=== PATIENT | female | born 1955 | race Caucasian/White ===

== ENCOUNTER → 2016-04-24 | Outpatient (CLI) | payer OTHER ==
--- NOTE | 2016-04-24 18:07 | MA ---
Screening Digital Mammogram With Tomosynthesis and iCAD Indication: Routine screening. Technique: Standard digital CC projections were obtained. Digital breast tomosynthesis was performed in the MLO projection with reconstruction at 1.0 mm slice thickness. Composite MLO views were recons tructed. This examination was processed by the iCAD computer-aided detection system. Comparison: April 2015, March 2014, March 2013, and January 2011 Breast density: Type B. Findings: CAD was reviewed. No suspicious microcalcifications, mass, or architectural distortion. Impression: Negative mammogram BI-RADS: 1 - Negative Recommendation: Routine screening is recommended in one year. [facility] will send a result letter to the patient. Negative mammography should not preclude additional workup of a clinically suspicious finding. The patient's information is entered into a reminder system with a target due date for her next mammo gram.
== END ==
LOC: FIMAGING 16:15
DX: Z12.31 Encounter for screening mammogram for malignant neoplasm of breast (principal)
CPT/HCPCS: G0202

== ENCOUNTER → 2016-06-01 | Outpatient (CLI) | payer OTHER | LOC: FIMAGING 13:38 | PROVIDERS: ATTEND Internal Medicine | DX: Z13.820 Encounter for screening for osteoporosis (principal); M81.0 Age-related osteoporosis without current pathological fracture; Z82.62 Family history of osteoporosis; Z78.0 Asymptomatic menopausal state; Z79.890 Hormone replacement therapy ==

== ENCOUNTER 2016-11-07 05:53 | Inpatient (IN) | payer OTHER ==
[2016-11-07] MEDS ORDERED: POVIDONE-IODINE 20 ML in SODIUM CL IRRIG SOLUTION 500 ML IRR ONE (06:00)
[2016-11-07] MEDS ORDERED: TRANEXAMIC ACID 850 MG in NS 100 ML IV ONE (06:00)
[2016-11-07] MEDS ORDERED: ROPIVACAINE 0.2% 80 MG, EPINEPHrine 0.2 MG, KETOROLAC TROMETHAMINE 30 MG in BAG 0 ML IU ONE (06:00)
[2016-11-07] MEDS ORDERED: ACETAMINOPHEN 325 MG TAB PO ONE (06:10)
[2016-11-07] MEDS ORDERED: FAMOTIDINE 20 MG TAB PO ONE (06:10)
[2016-11-07] MEDS ORDERED: DEXAMETHASONE 4 MG/ML VIAL IVP ONE (06:10)
[2016-11-07] MEDS ORDERED: ceFAZolin 2 GM/DEXTROSE 100 ML IV ONE (06:10)
[2016-11-07] MEDS ORDERED: DEXAMETHASONE 4 MG/ML VIAL ONE ×3 (06:23→07:04)
[2016-11-07] MEDS ORDERED: CALCIUM CHLORIDE 1 GM/10 ML INJ ONE (06:41)
[2016-11-07] MEDS ORDERED: VANCOMYCIN 1 GM VIAL ONE ×2 (06:41→06:42)
[2016-11-07] MEDS ORDERED: THROMBIN (BOVINE) 5,000 UNIT VIAL TP ONE (06:41)
[2016-11-07] MEDS ORDERED: LR 1,000 ML IV ONE (06:42)
[2016-11-07] MEDS ORDERED: ceFAZolin 1 GM/5 ML SYR ONE (06:42)
--- NOTE | 2016-11-07 06:56 | PDANEPAE ---
ANE Past Medical History - Cardiovascular History Hx Hypertension: No Hx Arrhythmias: No Hx Chest Pain: No Hx Coronary Artery / Peripheral Vascular Disease: No Hx CHF / Valvular Disease: No Hx Palpitations: No - Pulmonary History Hx COPD: No Hx Asthma/Reactive Airway Disease: No Hx Recent Upper Respiratory Infection: No Hx Oxygen in Use at Home: No Hx Sleep Apnea: No Sleep Apnea Screening Result - Last Documented: Negative - Neurologic History Hx Cerebrovascular Accident: No Hx Seizures: No Hx Dementia: No - Endocrine History Hx Diabetes: No - Renal History Hx Renal Disorders: No - Liver History Hx Hepatic Disorders: No - Neurological & Psychiatric Hx Hx Neurological and Psychiatric Disorders: No - Cancer History Hx Cancer: No - Congenital Disorder History Hx Congenital Disorders: No - GI History Hx Gastrointestinal Disorders: No - Chronic Pain History Chronic Pain: No - Surgical History Prior Surgeries: COLONOSCOPY W/ POLYPECTOMY 06/02/2016. Uterine ablation 1999. Tonsils & Adenoidectomy 1960 ANE Review of Systems - Exercise capacity METS (RN): 4 METS ANE Patient History - Allergies Allergies/Adverse Reactions: glutoalderhyde Allergy (Uncoded 03/05/15 16:05) - Home Medications Home Medications: Atorvastatin Calcium [Lipitor 10 mg (RX)] 10 mg PO DAILY 11/04/11 [Last Taken Unknown] Biest 50:50 Hrt 50mcg 0.25 ml TP BID 10/10/16 [Last Taken Unknown] Cholecalciferol Vit D3 [Vitamin D3 (*)] 2,500 units PO DAILY 10/10/16 [Last Taken Unknown] Clobetasol 0.05% [Temovate Topical Solution (RX)] 1 denise TP DAILY 10/10/16 [Last Taken Unknown] Herbals/Supplements -Info Only 1 ea PO DAILY 10/10/16 [Last Taken Unknown] Progesterone, Micronized [Progesterone] 100 mg PO HS 10/10/16 [Last Taken Unknown] Testosterone 1mg 0.25 ml TP DAILY 10/10/16 [Last Taken Unknown] - NPO status NPO Since - Liquids (Date): 11/06/16 NPO Since - Liquids (Time): 23:55 NPO Since - Solids (Date): 11/06/16 NPO Since - Solids (Time): 23:55 - Smoking Hx Smoking Status: Never smoked - Family Anes Hx Family Hx Anesthesia Complications: N/A ANE Labs/Vital Signs - Vital Signs Blood Pressure: 168/93 Heart Rate: 80 Respiratory Rate: 16 O2 Sat (%): 96 Height: 157.48 cm Weight: 86.183 kg ANE Physical Exam - Airway Neck exam: FROM Mouth exam: normal dental/mouth exam - Pulmonary Pulmonary: no respiratory distress, no rales or rhonchi, clear to auscultation - Cardiovascular Cardiovascular: regular rate and rhythym, no murmur, rub, or gallop - ASA Status ASA Status: II ANE Anesthesia Plan Anesthesia Plan: spinal
--- NOTE | 2016-11-07 07:00 | PDHPUP ---
History & Physical Update H&P update statement: This history and physical update is based on an assessment of the patient which was completed after admission or registration (within 24 hours), but prior to the surgery/procedure. H&P update: H&P reviewed & patient examined, no change in patient's condition since H&P completed
[2016-11-07] MEDS ORDERED: LIDOCAINE 2% 5 ML SDV ONE (07:04)
[2016-11-07] MEDS ORDERED: PROPOFOL/EMULSION 500 MG/50 ML BOTTLE IV ONE (07:04)
[2016-11-07] MEDS ORDERED: fentaNYL 100 MCG/2 ML INJ ONE (07:04)
[2016-11-07] MEDS ORDERED: BUPIVACAINE/EPI 0.25% 30 ML SDV ONE (07:31)
[2016-11-07] MEDS ORDERED: MEPERIDINE 25 MG/ML SYR IVP PRN (08:01)
[2016-11-07] MEDS ORDERED: PROMETHAZINE HCL 25 MG/ML INJ IVP PRN ×2 (08:01→08:58)
[2016-11-07] MEDS ORDERED: HYDROCODONE/APAP 5/325 TAB PO PRN (08:01)
[2016-11-07] MEDS ORDERED: ONDANSETRON 4 MG/2 ML VIAL IVP PRN ×2 (08:01→08:58)
[2016-11-07] MEDS ORDERED: OXYCODONE/APAP 5/325 TAB PO PRN (08:01)
[2016-11-07] MEDS ORDERED: LABETALOL HCL 50 MG/10 ML SYR IVP PRN (08:01)
[2016-11-07] MEDS ORDERED: NALOXONE HCL 0.4 MG/ML INJ IVP PRN (08:01)
[2016-11-07] MEDS ORDERED: fentaNYL 100 MCG/2 ML INJ IVP PRN (08:01)
[2016-11-07] MEDS ORDERED: ACETAMINOPHEN 500 MG TAB PO PRN (08:01)
[2016-11-07] MEDS ORDERED: ENALAPRILAT DIHYDRATE 1.25 MG/ML VIAL IVP PRN (08:01)
[2016-11-07] MEDS ORDERED: HYDROmorphONE/DILAUDID 1 MG/ML SYR IVP PRN (08:01)
[2016-11-07] MEDS ORDERED: LR 500 ML IV PRN (08:01)
[2016-11-07] MEDS ORDERED: PROPOFOL 200 MG/20 ML VIAL ONE (08:07)
--- NOTE | 2016-11-07 08:42 | POSTOPPROG ---
Post Op Note Date of Operation: 11/07/16 Surgeon: Cristian Groves [employer] Contractor: Hubert Chen/Jake Peters Anesthesiologist: Seth Macario Anesthesia: IV Sedation, Spinal Post-op Diagnosis: right knee severe degenerative Arthritis Procedure: right total knee arthroplasty. Inf/Abcess present in the surg proc area at time of surgery?: No EBL: 50-100 (Adductor canal block.)
[2016-11-07] MEDS ORDERED: MAGNESIUM HYDROXIDE 30 ML UDCUP PO PRN (08:58)
[2016-11-07] MEDS ORDERED: LACTULOSE 20 GM/30 ML UDCUP PO PRN (08:58)
[2016-11-07] MEDS ORDERED: TEMAZEPAM 15 MG CAP PO PRN (08:58)
[2016-11-07] MEDS ORDERED: BISACODYL 10 MG SUPP PR PRN (08:58)
[2016-11-07] MEDS ORDERED: DIPHENOXYLATE/ATROPINE LOMOTIL 1 TAB PO PRN (08:58)
[2016-11-07] MEDS ORDERED: CYCLOBENZAPRINE 10 MG TAB PO PRN (08:58)
[2016-11-07] MEDS ORDERED: ONDANSETRON DISINTEGRATING 4 MG TAB PO PRN (08:58)
[2016-11-07] MEDS ORDERED: diphenhydrAMINE 25 MG CAP PO PRN (08:58)
[2016-11-07] MEDS ORDERED: PROMETHAZINE HCL 25 MG SUPPR PR PRN (08:58)
[2016-11-07] MEDS ORDERED: oxyCODONE IR 5 MG TAB PO PRN (08:58)
[2016-11-07] MEDS ORDERED: POLYETHYLENE GLYCOL 3350 17 GM PKT PO PRN (08:58)
[2016-11-07] MEDS ORDERED: METOCLOPRAMIDE 10 MG/2 ML VIAL IVP PRN (08:58)
[2016-11-07] MEDS ORDERED: NS 500 ML IV PRN (08:58)
[2016-11-07] MEDS ORDERED: ATORVASTATIN CALCIUM 10 MG TAB PO SCH ×2 (09:00→21:45)
[2016-11-07] MEDS ORDERED: LR 1,000 ML IV SCH (09:00)
--- NOTE | 2016-11-07 09:21 | POSTANESTH ---
Post Anesthetic Evaluation Cardiovascular Status: Normal, Stable Respiratory Status: Normal, Stable, Similar to Pre-op Cond. Level of Consciousness/Mental Status: Can Participate in Eval, Alert and Oriented Pain Control: Adequate, Prn Tx Ordered Nausea/Vomiting Control: Adequate, Prn Tx Ordered Complications Possibly Related to Anesthesia: None Noted (Adductor canal block performed in PACU: 20 ml 0.25% bupiv + epi, U/S guided, no complications.)
--- NOTE | 2016-11-07 10:53 | GOP ---
[f rep st] OPERATIVE REPORT DATE OF OPERATION: 11/07/2016 SURGEON: Cristian Groves MD CHILDCARE TEACHER: Hubert Chen and Jake Peters. ANESTHESIA: A combination of Marcaine, spinal, IV sedation, and adductor canal block. ANESTHESIOLOGIST: Quan Macario M.D. PREOPERATIVE DIAGNOSIS: Right knee severe degenerative arthritis. POSTOPERATIVE DIAGNOSIS: Right knee severe degenerative arthritis. PROCEDURE PERFORMED: Right total knee arthroplasty, cemented, Schuster and Nephew Journey II, posterio r stabilized. FINDINGS: ESTIMATED BLOOD LOSS: Following deflation of the tourniquet was about 100 mL. The sponge and needle count were correct on 2 occasions. She was awakened from anesthesia, transferred to her hospital [facility] and taken to the PACU in satisf actory condition. There were no recognized intraoperative complications. In the PACU, for additional postoperative pain control, Dr. Macario performed an adductor canal block. Hubert Chen and Jake Peters acted as surgical assistants. Their assistance was a medical neces sity in order to safely complete the procedure. DESCRIPTION OF PROCEDURE: The patient was given 2 g of preoperative IV Ancef within 60 minutes of s urgery. She also received IV tranexamic acid at a dose of 10 mg/kg. She was placed on the [facility] g room table and given spinal anesthesia with Marcaine by Dr. Macario. She was then placed supine and given IV sedation. A Genao catheter was not used. She wore a CHRIS stocking and SCD on the nonopera tive leg. A bolster was placed under the right leg to prevent excessive external rotation. Her rig ht lower extremity was prepped with ChloraPrep from the upper thigh tourniquet to the tips of the to es. It was draped free using sterile sheets, stockinette, and Ioban plastic adhesive drape. The lo wer leg was wrapped with compressive Coban. The leg was exsanguinated with elevation and a 6-inch c ompressive wrap, and the pneumatic tourniquet was inflated to 300 mmHg. The [facility] on time-out was performed to verify the correct patient identity and the correct surgical side. The [place] time-out was also performed. The [facility] leg holding device was sterilely attached to the operating room table and used throughout the procedure to help position the knee. A straight midline incision was made centered on the patella. Subcutaneous tissues were sharply div ided and hemostasis was obtained using electrocautery. A medial subcutaneous flap was developed and the capsule and synovium were opened in a medial parapatellar fashion. Extensive degenerative enriquez ges were present in all 3 compartments, although the medial compartment was the most involved. The medial capsule and periosteum were elevated off the rim of the medial tibial plateau all the way octavia und to the posterior medial corner. Her medial collateral ligament was lightly released in order to balance the medial side of the knee. In order to improve exposure, her patella was prepared first. The original thickness of the patella was measured. Peripheral osteophytes were removed. I cut a flat surface on the back of the patell a. It was sized for a 32 mm resurfacing component. I removed enough bone from the patella such dawson t the remaining bone plus the thickness of the patellar component recreated the original thickness o f the patella. Her composite patellar thickness was 21 mm. The intramedullary alignment guide system was used to set up the distal femoral cut. The distal fem ur was cut in 6 degrees of valgus. I made a +2 mm cut on the distal femur. The sizing jig was used to determine proper femoral sizing. I shifted the 5 jig anteriorly 1 mm in order to accommodate a size 5 without notching the anterior cortex. The 5 in 1 cutting block was applied, and the anterior and posterior condylar cuts and chamfer cuts were made. The final jig was used to remove the centr al portion of the distal femur to accommodate the posterior stabilized femoral component. I was car eful to determine proper rotation by referencing off [place] line. Each cut was checked for accu racy before and after it was made. Her femur was sized for a size 5 posterior stabilized component. The trial component was tapped securely into place and was a good fit. Next, the tibia was prepared. The proximal tibial cut was made using the extramedullary alignment g uide system. The cut was made in a few degrees of posterior slope. I was careful to achieve proper varus and valgus alignment and proper rotation. The posterior compartment was cleared of meniscal remnants. Osteophytes were removed from the back of her femoral condyles. I checked the flexion ex tension gaps, and they were equal and balanced. The tibia was sized for a size 4 component. With the trial components in place, I selected a 12 mm polyethylene posterior stabilized tibial insert. The knee came to full extension and flexed to 125 degrees. There was no overstuffing in flexion. Her collateral ligaments were stable and balanced i n 90 degrees of flexion and full extension. The trial patellar button was applied, and patellar tra cking was checked. Tracking was excellent without any digital pressure. 40 mL of a joint anesthetic cocktail was injected into the posterior capsule, the periarticular stru ctures, the quadriceps muscle and tendon areas, and the subcutaneous tissues along the skin edges. A second dose of IV tranexamic acid was given at a dose of 10 mg/kg. The surfaces were prepared for cementing. They were carefully cleaned with the pulsating lavage irr igation and thoroughly dried. The CarboJet device was used to blow dry the cancellous surfaces. A double batch of high viscosity methylmethacrylate cement with 2 g of powdered vancomycin added was m ixed. While it was still in a semi liquid state, all [address] components were cemented in place. Excess c ement was removed before it hardened. The 12 mm trial tibial insert was re-tried and was the proper thickness. The actual component was i nserted and locked into place. The knee was thoroughly irrigated one final time with a dilute Betad ine solution. The tourniquet was deflated. The total tourniquet time was 41 minutes. 6 mL of platelet rich plasma was then sprayed onto the intra-articular surfaces of the knee. The va stus medialis portion of the extensor mechanism was repaired with several interrupted [id number] #2 FiberWire sutures. The capsule and synovium were closed first with multiple interrupted figure -of-eight 0 PDS sutures, followed by a running #2 barbed Ethicon Stratafix PDO suture. Subcutaneous tissues were closed with a running 0 barbed Ethicon Stratafix Monoderm suture. Once the capsule wa s closed, the subcutaneous tissues were sprayed with an additional 6 mL of platelet rich plasma. Nunes bcutaneous tissues were closed with a running 0 barbed Ethicon Stratafix Monoderm suture. The skin was closed with a running 3-0 barbed Ethicon Stratafix Monoderm subcuticular suture. The skin was s ealed with 1/2-inch Steri-Strips. The wound was covered with Xeroform gauze and flat 4x4s. The kne e was wrapped with Kerlix and 6-inch compressive wrap. A long-leg CHRIS stocking and SCD were applied followed by the cooling device. The patient wore a stocking and SCD on the opposite leg during the procedure. I used a size 5 cemented Schuster and Nephew Oxinium posterior stabilized femoral component, a size 4 c emented tibial base plate, a 12 mm posterior stabilized tibial insert, and a 32 mm cemented round po lyethylene resurfacing patellar component. /[id number]/MODL
[2016-11-07] MEDS: ACETAMINOPHEN 325 MG TAB PO SCH ×3 (11:32→23:49)
[2016-11-07] MEDS: ceFAZolin 2 GM/DEXTROSE 100 ML IV SCH ×2 (13:33→21:32)
[2016-11-07] MEDS: CLOBETASOL 0.05% 25 ML TOPICAL SOLUTION TP SCH (13:35)
[2016-11-07] MEDS: [UNRECOGNIZED DRUG - OTHER] TP SCH ×2 (13:35→21:30)
[2016-11-07] MEDS: FERROUS SULFATE 140 MG TAB.ER PO SCH (13:36)
[2016-11-07] MEDS: TESTOSTERONE 1 MG TP SCH (13:38)
[2016-11-07] MEDS ORDERED: PROGESTERONE,MICR 100 MG CAP PO SCH (21:00)
[2016-11-07] MEDS: traMADol 50 MG TAB PO PRN (21:28)
[2016-11-07] MEDS: KETOROLAC 30 MG/1 ML SDV IVP PRN (21:29)
[2016-11-07] MEDS: SENNOSIDES/DOCUSATE SODIUM TAB PO SCH (21:29)
[2016-11-07] MEDS: FAMOTIDINE 20 MG TAB PO SCH (21:30)
[2016-11-07] MEDS: ASPIRIN 325 MG TAB PO SCH (21:38)
[2016-11-07 22:05] VITALS: RESP 16
[2016-11-08 05:12] LABS: HEMATOCRIT 35.2 % (38.0-47.0); HEMOGLOBIN 12.1 g/dL (12.6-16.3)
[2016-11-08] MEDS: ACETAMINOPHEN 325 MG TAB PO SCH (06:11)
[2016-11-08] MEDS: KETOROLAC 30 MG/1 ML SDV IVP PRN (06:11)
[2016-11-08] MEDS: traMADol 50 MG TAB PO PRN (06:11)
[2016-11-08 08:05] VITALS: BP 148/97; PULSE 78; TEMP 97.9; O2SAT 96
[2016-11-08] MEDS: FERROUS SULFATE 140 MG TAB.ER PO SCH (08:14)
[2016-11-08] MEDS: SENNOSIDES/DOCUSATE SODIUM TAB PO SCH (08:15)
[2016-11-08] MEDS: FAMOTIDINE 20 MG TAB PO SCH (08:15)
[2016-11-08] MEDS: TESTOSTERONE 1 MG TP SCH (08:16)
[2016-11-08] MEDS: [UNRECOGNIZED DRUG - OTHER] TP SCH (08:17)
[2016-11-08] MEDS: ASPIRIN 325 MG TAB PO SCH (09:06)
[2016-11-08] MEDS: CLOBETASOL 0.05% 25 ML TOPICAL SOLUTION TP SCH (09:06)
--- NOTE | 2016-11-08 09:26 | SOAPPROG ---
SOAP Progress Note Assessment/Plan: Assessment: Afebrile. Awake and alert. Not much pain. H/H is good. Films look good. Dsg is dry. Excellent progress with PT. Plan: PT today. DC later today. 11/08/16 09:25 Objective: Vital Signs Temp Pulse Resp BP Pulse Ox 36.6 C 78 16 148/97 H 96 11/08/16 08:00 11/08/16 08:00 11/08/16 08:00 11/08/16 08:00 11/08/16 08:00 Laboratory Results 11/08/16 04:20 11/07/16 11/08/16 11/09/16 05:59 05:59 05:59 Intake Total 1970 Output Total 2350 Balance -380 ICD10 Worksheet Patient Problems: Problems Problem Status Onset Osteoarthritis of right knee Acute Allergic reaction Acute
--- NOTE | 2016-11-08 10:31 | GDS ---
[f rep st] DISCHARGE SUMMARY ADMITTING DIAGNOSES: Right knee severe degenerative arthritis DISCHARGE DIAGNOSES: Right knee severe degenerative arthritis OPERATION PERFORMED: On 11/07/2016, a right total knee arthroplasty. POSTOPERATIVE COMPLICATIONS: None. CONDITION ON DISCHARGE: Improved. DESCRIPTION OF HOSPITAL COURSE: The patient was admitted to the hospital on the morning of surgery. Her admission CBC was normal. The same day, under a combination of Marcaine, spinal, IV sedation, and adductor canal block, she underwent a right total knee arthroplasty. Postoperatively, she was treated with multimodal DVT prophylaxis, including aspirin and early mobilization. On the first postoperative day, her hemoglobin and hematocrit were 12.1 and 35.2. [facility] progress with ambulation and stairs. By the time of discharge, she was afebrile. Her wound was clean and dry, and she was independent wa lking with a walker. DISPOSITION: The patient is discharged to her home. DISCHARGE INSTRUCTIONS: She will go to outpatient physical therapy at my office. She may progress to full weightbearing on the right as tolerated. Use CHRIS stockings for 1 week. Use aspirin 325 mg p.o. daily for 21 days. She has prescriptions for oxycodone and tramadol for pain control. I will see her back in the office on November 23, 2016. If there are any problems, she is to call me at [facility] office. /[id number]/MODL
== END 2016-11-08 10:56 | disposition home or self-care (01) | DRG 470 ==
LOC: F3N 05:53
PROVIDERS: ADMIT Orthopaedic Surgery; ATTEND Orthopaedic Surgery
PROC: 0SRC0J9 Replacement of Right Knee Joint with Synthetic Substitute, Cemented, Open Approach (ICD-10-PCS; principal; 2016-11-07 07:15)
DX: M17.11 Unilateral primary osteoarthritis, right knee (principal)
CPT/HCPCS: 97110-GP; 97116-GP; 97161-GP; 97165-GO; 97530-GP; C1713; J0171; J0690; J1100; J1885; J2704; J2795; J3010; J3370

== ENCOUNTER → 2017-05-31 | Outpatient (CLI) | payer OTHER | LOC: FIMAGING 15:57 | PROVIDERS: ATTEND Internal Medicine | DX: Z12.31 Encounter for screening mammogram for malignant neoplasm of breast (principal) ==

== ENCOUNTER → 2018-06-18 | Outpatient (CLI) | payer OTHER | LOC: FIMAGING 16:02 | PROVIDERS: ATTEND Internal Medicine | DX: Z12.31 Encounter for screening mammogram for malignant neoplasm of breast (principal) ==